=== PATIENT | female | born 1960 | race Caucasian/White ===

== ENCOUNTER → 2022-07-08 | Outpatient (CLI) | payer BC, SELFPAY ==
--- NOTE | 2022-07-08 18:53 | CT_ITS ---
INDICATION: kidney stone EXAMINATION: CT Abdomen And Pelvis W/O Contrast Injection TECHNIQUE: Helically acquired images were obtained of the abdomen and pelvis without the use of IV contrast. A radiation dose optimization technique was used for this scan. Oral contrast: None. COMPARISON: None FINDINGS: Evaluation of the solid organs and vascular structures is limited without intravenous contrast. Visualized lung bases: Unremarkable Liver: Diffusely hypodense consistent with fatty liver. Scattered subcentimeter hypodensities are too small to characterize but most likely cysts. Gallbladder: Not visualized, likely surgically absent. 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 Multiple nonobstructing calculi in the right kidney, largest being a staghorn calculus measuring 2.2 x 1.3 cm. Vasculature: Unremarkable GI Tract: Unremarkable Lymphadenopathy: None Peritoneum: No ascites. Bladder: Unremarkable Reproductive organs: Unremarkable Bones/Soft tissues: Mild scattered degenerative changes of the visualized spine. 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 CT/Abdomen/Pelvis without Cont IMPRESSION: Multiple nonobstructing calculi in the right kidney, largest being a staghorn calculus measuring 2.2 x 1.3 cm. No hydronephrosis. 1.6 cm angiomyolipoma in the right kidney. Fatty liver. Electronically Signed: David Del Toro MD at 20:42 EST ,
== END | disposition home or self-care (01) ==
PROVIDERS: Referring Provider Urology; Visit Provider Urology
DX: N20.0 Calculus of kidney (principal); K76.0 Fatty (change of) liver, not elsewhere classified; D17.71 Benign lipomatous neoplasm of kidney; R68.83 Chills (without fever)
CPT/HCPCS: 74176

== ENCOUNTER → 2022-08-12 | Outpatient (CLI) | payer BC, SELFPAY ==
--- NOTE | 2022-08-12 06:40 | ECHOD_ITS ---
Reason For Study: ARRHYTHMIS Procedure This was a 2D Doppler, Color Flow transthoracic echocardiogram. Technically difficult parasternal images due to 30 day monitor placement. Exam performed in department. Left Ventricle Normal size and thickness. The left ventricular ejection fraction is 60 %. Right Ventricle Normal right ventricle. Atria The left and right atria are normal. Mitral Valve The mitral valve is structurally normal. No prolapse or stenosis seen. Tricuspid Valve Normal tricuspid valve. Aortic Valve Normal aortic valve. Pulmonic Valve The pulmonic valve is not well visualized. Great Vessels Normal sized aortic root. Pericardium/Pleural No pericardial effusion. MMode/2D Measurements & Calculations LVIDd: 3.9 cm IVSd: 1.1 cm LA dimension: 3.2 cm LVIDs: 2.5 cm LVPWd: 1.1 cm RVDd: 3.7 cm FS: 36.7 % LAV(MOD-bp): 47.8 ml LA A4 area: 16.4 cm2 RA A4 area: 14.1 cm2 LAV(MOD-bp) Indexed: 24.1 ml/m2 LAV(MOD-sp2): 51.3 ml LAV(MOD-sp4): 40.3 ml Time Measurements MV dec time: 0.26 sec Doppler Measurements & Calculations MV E max juvenal: 81.6 cm/sec Lat Peak E' Juvenal: 7.9 cm/sec Med Peak E' Juvenal: 6.5 cm/sec MV A max juvenal: 99.9 cm/sec E/E' lat: 10.4 E/E' med: 12.6 MV E/A: 0.82 MV V2 max: 117.3 cm/sec MV P1/2t max juvenal: 107.1 cm/sec Ao V2 max: 103.7 cm/sec MV max P.5 mmHg MV P1/2t: 82.6 msec Ao max P.3 mmHg MV V2 mean: 66.1 cm/sec MV dec slope: 380.0 cm/sec2 Ao V2 mean: 74.9 cm/sec MV mean P.0 mmHg MVA(P1/2t): 2.7 cm2 Ao mean P.5 mmHg MV V2 VTI: 25.5 cm Ao V2 VTI: 25.7 cm AV (velocity ratio): 0.80 LV V1 max: 87.9 cm/sec PA V2 max: 75.3 cm/sec LV V1 max P.1 mmHg PA V2 mean: 56.6 cm/sec LV V1 mean P.8 mmHg LV V1 mean: 63.6 cm/sec LV V1 VTI: 20.7 cm ECHO/Echo Complete Interpretation Summary The left ventricular ejection fraction is 60 %. Ordering Physician: Mj Salomon Referring Physician: Mj Salomon Performed By: Hamlet Gilbert RCS
--- NOTE | 2022-08-16 14:55 | STRESSREP ---
Stress Test Report Date: 08/12/2022 Procedure: Exercise tolerance test/imaging study Indications: Shortness of breath Consent: Per the patient Procedure: The patient exercised on a Ravinder protocol for 5 minutes and 1 second achieving a peak heart rate of 162 bpm (101% predicted maximal heart rate) with a peak blood pressure 208/58 mmHg and a peak MET capacity of 7.0 METs. The baseline ECG demonstrated normal sinus rhythm. The peak exercise ECG demonstrated no ischemic changes. There were no cardiac dysrhythmias pretest, during exercise, or recovery. The functional capacity was considered below average. There was no complaint of chest discomfort during exercise or recovery. The examination was discontinued secondary to target heart rate being achieved. The patient was injected with 11.6 mCi of technetium 99m Cardiolite and subsequently rest SPECT Cardiolite nuclear imaging was obtained in the horizontal long, vertical long, and short axis views. Post-exercise, the patient was injected with 34.5 mCi of technetium 99m Cardiolite and subsequently stress SPECT Cardiolite nuclear imaging was obtained in the horizontal long, vertical long, and short axis views. A gated Cardiolite study at peak stress was obtained. Rest and stress SPECT Cardiolite nuclear imaging status post realignment, normalization, and attenuation correction, demonstrates mildly reduced tracer uptake in the anterior wall and apex with stress. There is end systolic thickening and brightening. The gated Cardiolite study demonstrates myocardial thickening and inward wall motion. The reported LVEF is 79%. Impression: 1. Technically adequate (percent predicted maximal heart rate greater than 85%) exercise tolerance test 2. Peak exercise ECG no ischemic changes 3. There were no cardiac dysrhythmias pretest, during exercise, or recovery 4. Rest and stress SPECT Cardiolite nuclear imaging demonstrate mildly reduced tracer uptake in the inferior wall and apex with exercise suggestive of possible mild ischemia. 5. The gated Cardiolite study reports an LVEF of 79%. This note was generated with [employer] (FIG)ation software. It may contain incorrect words, spelling, and punctuation that were not noted in checking the note before signing.
== END | disposition home or self-care (01) ==
PROVIDERS: Referring Provider Internal Medicine Cardiovascular Disease; Visit Provider Internal Medicine Cardiovascular Disease
DX: R06.09 Other forms of dyspnea (principal); R00.2 Palpitations
CPT/HCPCS: 78452; 93017; 93306; A9500; A4216

== ENCOUNTER → 2023-12-21 | Outpatient (CLI) | payer BC, SELFPAY ==
--- NOTE | 2023-12-21 13:38 | STE_ITS ---
Reason For Study: Previous abnormal stress test Stress Results Protocol: Stress Echocardiogram Ravinder Protocol Maximum Predicted HR: 158 bpm Target HR: 134 bpm % Maximum Predicted HR: 95 % DurationHeart Rate Stage (mm:ss) (bpm) BP Comment Baseline 69 124/72Patient denies chest pain Stage 1 3:00 115 142/68Patient denies chest discomfort Stage 2 3:00 133 152/70Mild shortness of breath. Patient denies chest discomfort Stage 3 1:30 150 174/78Increased shortness of breath. Denies chest discomfort. Recovery 82 110/70Patient asymptomatic Stress Duration: 7:30 mm:ss Maximum Stress HR: 150 bpm Baseline Echocardiogram Findings Stress Echo Wall motion Data Resting WM Intermediate WM Stress WM Resting Wall Motion Wall Motion Stress No regional wall motion All segments Hyperkinetic. abnormalities noted. EKG Data Normal sinus rhythm. No ischemic changes during exercise and in recovery. ECHO/Stress Test Echo w/o Contrast Interpretation Summary Average exercise tolerance. No diagnostic ischemic ECG changes with stress. Rare PVC. Normal augmentation of all left ventricular wall segments post exercise. No ech o evidence of ischemia. Negative stress echo. Ordering Physician: Patty Larsen Referring Physician: Mj Salomon MD Performed By:
== END | disposition home or self-care (01) ==
LOC: CVS 13:35
PROVIDERS: PCP Family Medicine; Referring Provider Nurse Practitioner Gerontology; Visit Provider Nurse Practitioner Gerontology
DX: R94.39 Abnormal result of other cardiovascular function study (principal)
CPT/HCPCS: 93017; 93350

== ENCOUNTER → 2024-12-18 | Outpatient (CLI) | payer BC, SELFPAY ==
[2024-12-18 11:57] LABS: Microalbumin:Creatinine Ratio 1162.5 mg/g CRE
[2024-12-18 12:16] LABS: ALB/GLOB Ratio 1.4 RATIO (0.9-2.4); AST(SGOT) 19 U/L (<=31); Alanine Aminotransfer ALT/SGPT 21 U/L (<=34); Albumin, Serum 4.3 g/dL (3.4-4.8); Alkaline Phosphatase 75 U/L (35-104); Anion Gap 12 (5-15); BUN 15 mg/dL (4-19); BUN/Creat Ratio 22.7 RATIO (10-20); Calcium,Total 9.1 mg/dL (7.6-11.0); Carbon Dioxide 22.7 mmol/L (21.0-32.0); Chloride 106 mmol/L (98-108); Cholesterol 125 mg/dL (<=200); Creatinine, Serum 0.66 mg/dL (0.70-1.20); EST Glomerular Filtration Rate 99 (>60); Glucose 95 mg/dL (70-99); High Density Lipoprotein 45 mg/dL; Low Density Lipoprotein Calc. 70 mg/dL; Protein, Total 7.3 g/dL (5.9-8.4); Sodium Level 141 mmol/L (133-145); Thyroid Stim Hormone (TSH) 0.594 uIU/mL (0.300-4.200); Total Bilirubin 0.49 mg/dL (0.00-1.30); Triglycerides 52 mg/dL; Very Low Density Lipoprotein 10 mg/dL (5-40); Vitamin D,25 Hydroxy 36.2 ng/mL (30-100); cholesterol:hdl ratio screen 2.79
== END | disposition home or self-care (01) ==
LOC: LAB 09:13
PROVIDERS: PCP Family Medicine; Referring Provider Nurse Practitioner Family; Visit Provider Nurse Practitioner Family
DX: E87.6 Hypokalemia (principal); E78.5 Hyperlipidemia, unspecified; E55.9 Vitamin D deficiency, unspecified
CPT/HCPCS: 36415; 80053; 80061; 82043; 82306; 82570; 84443

== ENCOUNTER → 2025-02-26 | Outpatient (CLI) | payer BC, SELFPAY ==
[2025-02-26 08:44] LABS: AST(SGOT) 19 U/L (<=31); Alanine Aminotransfer ALT/SGPT 18 U/L (<=34); Albumin, Serum 4.3 g/dL (3.4-4.8); Alkaline Phosphatase 82 U/L (35-104); Bilirubin, Direct 0.28 mg/dL (0.00-0.30); Cholesterol 165 mg/dL (<=200); Globulin 2.7 g/dL (2.2-4.2); Low Density Lipoprotein Calc. 79 mg/dL; Triglycerides 125 mg/dL; Very Low Density Lipoprotein 25 mg/dL (5-40); cholesterol:hdl ratio screen 2.70
== END | disposition home or self-care (01) ==
LOC: LAB 07:40
PROVIDERS: PCP Family Medicine; Referring Provider Nurse Practitioner Family; Visit Provider Nurse Practitioner Family
DX: E78.5 Hyperlipidemia, unspecified (principal); E11.65 Type 2 diabetes mellitus with hyperglycemia; I10 Essential (primary) hypertension
CPT/HCPCS: 36415; 80061; 80076

== ENCOUNTER → 2025-06-18 | Outpatient (CLI) | payer BC, SELFPAY ==
[2025-06-18 10:11] LABS: Mucous, Urine 0 SEEN /hpf (<or=2+); Squamous Epithelial Cells - UA 0 SEEN /hpf (5-10)
[2025-06-18 10:24] LABS: Color, Urine Yellow (Yellow); Glucose, Dipstick 1000 mg/dl (Normal); Ketone-Dipstick Negative (Negative); Leukocyte Esterase-Dipstick 500 /ul (Negative); Nitrite-Dipstick Positive (Negative); Occult Blood-Urine 250 /ul (Negative); Protein-Dipstick 100 mg/dl (Negative); Specific Gravity, Urine 1.020 (1.002-1.030)
[2025-06-18 10:25] LABS: Urine Bilirubin Dipstick 1 mg/dL (Negative)
[2025-06-18 10:40] LABS: Creatinine, Urine (random) 56.40 mg/dL (28.00-217.00); Microalbumin,Random Urine 178.0 mg/L (<20 mg/L)
[2025-06-18 10:45] LABS: Red Blood Cells-Urine 10-25 SEEN /hpf (0-5)
[2025-06-18 11:01] LABS: PTHIN 62 pg/mL (11-61)
[2025-06-18 11:11] LABS: AST(SGOT) 12 U/L (<=31); Alanine Aminotransfer ALT/SGPT 13 U/L (<=34); Albumin, Serum 4.1 g/dL (3.4-4.8); Alkaline Phosphatase 77 U/L (35-104); Anion Gap 11 (5-15); BUN 13 mg/dL (4-19); BUN/Creat Ratio 24.3 RATIO (10-20); Calcium,Total 9.1 mg/dL (7.6-11.0); Carbon Dioxide 24.0 mmol/L (21.0-32.0); Chloride 106 mmol/L (98-108); Globulin 2.9 g/dL (2.2-4.2); Glucose 110 mg/dL (70-99); Potassium 4.3 mmol/L (3.3-5.1); Vitamin D,25 Hydroxy 27.2 ng/mL (30-100)
== END | disposition home or self-care (01) ==
LOC: LAB 09:47
PROVIDERS: PCP Family Medicine; Referring Provider Nurse Practitioner Family; Visit Provider Nurse Practitioner Family
DX: N20.0 Calculus of kidney (principal); E11.65 Type 2 diabetes mellitus with hyperglycemia
CPT/HCPCS: 36415; 80053; 81001; 82043; 82306; 82570; 83970; 84443